=== PATIENT | male | born 1960 | race Caucasian/White ===

== ENCOUNTER 2017-04-10 06:33 | Day surgery (SDC) | payer BC ==
[~2017-04-10] VITALS: Ht 170.2 cm; Wt 84.4 kg
[2017-04-10] MEDS ORDERED: SEVOFLURANE 15 MIN GAS INH ONE (08:05)
[2017-04-10] MEDS ORDERED: PROPOFOL 200MG/ 20ML VIAL (DIPRIVAN) IV ONE (08:05)
[2017-04-10] MEDS ORDERED: DILTIAZEM HCL 25 MG/5 ML VIAL IV ONE (08:05)
[2017-04-10] MEDS ORDERED: LR 1,000 ML IV.SOLN IV ONE (08:05)
[2017-04-10] MEDS ORDERED: fentaNYL CITRATE 250 MCG/5 ML AMP IV ONE (08:05)
[2017-04-10] MEDS ORDERED: KETOROLAC TROMETHAMINE 30 MG VIAL IVP ONE (08:05)
[2017-04-10] MEDS ORDERED: ROCURONIUM BROMIDE 10 MG/ML (ZEMURON) IV ONE (08:05)
[2017-04-10] MEDS ORDERED: ONDANSETRON HCL 4 MG/2 ML VIAL IVP ONE (08:05)
[2017-04-10] MEDS ORDERED: MIDAZOLAM HCL 5 MG/5 ML VIAL IVP ONE (08:05)
[2017-04-10] MEDS ORDERED: NS IRRIG SOLN 1000 ML IR ONE (08:05)
[2017-04-10] MEDS ORDERED: DEXAMETHASONE SOD PHOSPHATE 4 MG/ML VIAL IVP ONE (08:05)
[2017-04-10] MEDS ORDERED: EPINEPHrine 1 MG/ML AMP IVP ONE (08:05)
[2017-04-10] MEDS ORDERED: MEPERIDINE HCL/PF 50 MG/ML AMP IM ONE (09:05)
[2017-04-10] MEDS ORDERED: LR 1,000 ML IV SCH (10:19)
[2017-04-10] MEDS ORDERED: HYDROmorphone 1 MG INJ. 1 MG/ML AMPUL IVP PRN (10:30)
[2017-04-10] MEDS ORDERED: MEPERIDINE HCL/PF 25 MG/ML DISP.SYRIN IVP PRN (10:30)
[2017-04-10] MEDS ORDERED: HYDROmorphone 2 MG/ML VIAL IVP PRN ×2 (10:30)
[2017-04-10 13:16] VITALS: BP_SYST 112
== END 2017-04-10 13:25 | disposition home or self-care (01) ==
LOC: SDS 06:33 → SMU 06:34 → SDS 13:25
PROVIDERS: ATTEND Otolaryngology
DX: D38.0 Neoplasm of uncertain behavior of larynx (principal); Z79.899 Other long term (current) drug therapy; Z98.890 Other specified postprocedural states; K21.9 Gastro-esophageal reflux disease without esophagitis; Z87.891 Personal history of nicotine dependence; K44.9 Diaphragmatic hernia without obstruction or gangrene; J30.9 Allergic rhinitis, unspecified; E66.9 Obesity, unspecified; Z88.0 Allergy status to penicillin; Z88.8 Allergy status to other drugs, medicaments and biological substances
CPT/HCPCS: 31536; 88305; J0171; J1100; J1885; J2175; J2250; J2405; J2704; J3010; J3490; J7120